=== PATIENT | female | born 1945 | race Caucasian/White ===

== ENCOUNTER 2020-09-29 12:10 | Emergency (ER) | payer MEDICARE, OTHER ==
[2020-09-29] MEDS ORDERED: Cleocin Phosphate IV 600 MG/4 ML ONE (12:44)
[2020-09-29] MEDS: Cleocin Phosphate IV 600 MG/4 ML IM STA (12:47)
--- NOTE | 2020-09-29 12:47 | ERPHSYRPT ---
- History of Present Illness Time Seen by Provider: 09/29/20 12:30 Source: patient Physician History: Patient is a 74-year-old female presents to our ED with cellulitis at the distal anterolateral aspect of her right leg. Patient self diagnosed with a blood clot. However patient has no history of blood clots. Patient has no calf pain or popliteal fossa pain. No chest pain or shortness of breath. The area that patient is concerned with is cellulitic, generating heat and tender mildly swo llen consistent with focal cellulitis. Patient denies fever. No trauma. No nausea or vomiting. Symptoms are mild to moderate in intensity. No specific worsening or improving factors. The area of involvement was first observed yesterday evening. The area is somewhat more tender today. Patient declined pain medication. Patient only experiences pain upon palpation to the area of involvement. Patient voices no other complaints or concerns at this time. She states her tetanus is up-to-date. Timing/Duration: yesterday Severity: mild Modifying Factors: Improves With: nothing Associated Symptoms: denies symptoms Allergies/Adverse Reactions: Penicillins Allergy (Intermediate, Verified 09/29/20 12:43) Sulfa (Sulfonamide Antibiotics) Allergy (Intermediate, Verified 09/29/20 12:43) Home Medications: Lisinopril 20 mg [Zestril 20 MG] 20 mg PO DAILY 09/29/20 [History] - Review of Systems Constitutional: No Symptoms, No Fever, No Chills Eyes: No Symptoms Ears, Nose, & Throat: No Symptoms Respiratory: No Symptoms, No Cough, No Dyspnea Cardiac: No Symptoms, No Chest Pain, No Edema, No Syncope Abdominal/Gastrointestinal: No Symptoms, No Abdominal Pain, No Nausea, No Vomiting, No Diarrhea Genitourinary Symptoms: No Symptoms, No Dysuria Musculoskeletal: No Symptoms, No Back Pain, No Neck Pain Skin: No Symptoms, No Rash Neurological: No Symptoms, No Dizziness, No Focal Weakness, No Sensory Changes Psychological: No Symptoms Endocrine: No Symptoms Hematologic/Lymphatic: No Symptoms Immunological/Allergic: No Symptoms All Other Systems: Reviewed and Negative - Nursing Vital Signs Nursing Vital Signs: Initial Vital Signs Temperature 98 F 09/29/20 12:27 Pulse Rate 56 L 09/29/20 12:27 Respiratory Rate 20 09/29/20 12:27 Blood Pressure 148/68 09/29/20 12:27 O2 Sat by Pulse Oximetry 96 09/29/20 12:27 Pain Scale Pain Intensity 7 - Physical Exam General Appearance: no apparent distress, alert Eye Exam: PERRL/EOMI, eyes nml inspection Ears, Nose, Throat Exam: normal ENT inspection, TMs normal, pharynx normal, moist mucous membranes Neck Exam: normal inspection, non-tender, supple, full range of motion Respiratory Exam: normal breath sounds, lungs clear, No respiratory distress Cardiovascular Exam: regular rate/rhythm, normal heart sounds, normal peripheral pulses Gastrointestinal/Abdomen Exam: soft, normal bowel sounds, No tenderness, No mass Back Exam: normal inspection, normal range of motion, No CVA tenderness, No vertebral tenderness Extremity Exam: normal inspection, normal range of motion, pelvis stable, other (5 x 7 cm area of cellulitis with indurated skin at the distal anterolateral aspect of her right leg. Negative Homans' sign. Extremities neurovascular intact distally. Cap refill less than 2 seconds. PT DP pulse palpable. The extremity is warm pink well perfused.) Neurologic Exam: alert, oriented x 3, cooperative, normal mood/affect, nml cerebellar function, nml station & gait, sensation nml, No motor deficits Skin Exam: normal color, warm, dry, No rash Lymphatic Exam: No adenopathy SpO2 Interpretation: normal SpO2: 98 O2 Delivery: Room Air - Course Nursing assessment & vital signs reviewed: Yes Ordered Tests: Medication Summary Discontinued Medications Generic Name Dose Route Start Last Admin Trade Name Lakia PRN Reason Stop Dose Admin Clindamycin Phosphate 600 mg 09/29/20 12:38 09/29/20 12:47 Cleocin Phosphate Iv 600 Mg/4 Ml IM 09/29/20 12:39 600 mg ONCE STA Administration Clindamycin Phosphate Confirm 09/29/20 12:44 Cleocin Phosphate Iv 600 Mg/4 Ml Administered 09/29/20 12:45 Dose 600 mg .ROUTE .STK-MED ONE - Progress Progress: improved Progress Note: 09/29/20 12:59 Patient reassessed. She continues to decline pain medication. Patient received an intramuscular dose of clindamycin. A written prescription for clindamycin was provided to patient. Patient was given a referral to Dr. Tuttle for a 48-hour follow-up. Plan of care discussed with patient. She agrees to follow-up as indicated. Patient voices no other complaints or concerns at this time. Will discharge home. Counseled pt/family regarding: diagnosis, need for follow-up - Departure Departure Disposition: Home Clinical Impression: Cellulitis Condition: Stable Critical Care Time: No Referrals: CAROLYN JONES MD [ACTIVE STAFF] - Additional Instructions: Discharge/Care Plan EMILY PRIETO was seen on 09/29/20 in the Emergency Room. The patient was counseled regarding Diagnosis,Lab results, Imaging studies, need for follow up and when to return to the Emergency Room. Prescriptions given: Discharge Note I have spoken with the patient and/or caregivers. I have explained the patient's condition, diagnosis and treatment plan based on the information available to me at this time. I have answered the patient's and/or caregiver's questions and addressed any concerns. The patient and/or caregivers have as good understanding of the patient's diagnosis, condition and treatment plan as can be expected at this point. The vital signs have been stable. The patient's condition is stable and appropriate for discharge from the emergency department. The patient will pursue further outpatient evaluation with the primary care physician or other designated or consulting physician as outlined in the discharge instructions. The patient and/or caregivers are agreeable to this plan of care and follow-up instructions have been explained in detail. The patient a nd/or caregivers have received these instruction. The patient/and or caregivers are aware that any significant change in condition or worsening of symptoms should prompt an immediate return to this or the closest emergency department or call 911. Prescriptions: Clindamycin HCl 150 mg [Cleocin 150 mg Capsule] 2 cap PO QID 7 Days #56 capsule
[2020-09-29 13:18] VITALS: BP 140/62; PULSE 60; O2SAT 97
== END 2020-09-29 13:16 | disposition home or self-care (01) ==
LOC: ED 12:10
DX: L03.115 Cellulitis of right lower limb (principal)
CPT/HCPCS: 96372; 99283

== ENCOUNTER 2020-10-03 20:02 | Emergency (ER) | payer MEDICARE, OTHER ==
[2020-10-03 20:32] VITALS: O2SAT 98
--- NOTE | 2020-10-03 20:44 | ERPHSYRPT ---
- History of Present Illness Time Seen by Provider: 10/03/20 20:04 Source: patient Exam Limitations: no limitations Patient Subjective Stated Complaint: pt states the cellulitis in her rt lower leg has gotten worse and more painful since Triage Nursing Assessment: pt alert and oriented, answers questions approp. pt back per wheelchair and transfers to stretcher with minimal assist. respirations nonlabored. edema 2+ noted to bilat lower extremites. some redness and mild warmth noted to rt lower leg. Physician History: Patient has right lower leg redness, tenderness. Treated for cellulitis for 5 days. Some improvement but increasing pain today. No falls no trauma. No other risk factors for DVT or pulmonary embolism. No chest pain, shortness of breath. Location: right lower leg Quality: sharp Radiation: none Severity: moderate Duration: 7 days Timing: gradual Modifying factors/associated signs and symptoms: on clindamycin Allergies/Adverse Reactions: Penicillins Allergy (Intermediate, Verified 10/03/20 20:43) Sulfa (Sulfonamide Antibiotics) Allergy (Intermediate, Verified 10/03/20 20:43) Home Medications: Lisinopril 20 mg [Zestril 20 MG] 20 mg PO DAILY 09/29/20 [History] Aspirin EC 81 mg [Ecotrin 81 mg] 81 mg PO DAILY 10/03/20 [History] Hx Tetanus, Diphtheria Vaccination/Date Given: Yes Hx Influenza Vaccination/Date Given: No Hx Pneumococcal Vaccination/Date Given: No Immunizations Up to Date: Yes Travel Risk - International Travel Have you traveled outside of the country in past 3 weeks: No - Coronavirus Screening Are you exhibiting any of the following symptoms?: No Close contact with a COVID-19 positive Pt in past 14-21 Days: Yes - Review of Systems Constitutional: No Fever, No Chills Eyes: No Symptoms Ears, Nose, & Throat: No Symptoms Respiratory: No Cough, No Dyspnea Cardiac: No Chest Pain, No Edema, No Syncope Abdominal/Gastrointestinal: No Abdominal Pain, No Nausea, No Vomiting, No Diarrhea Genitourinary Symptoms: No Dysuria Musculoskeletal: Other (Right lower leg redness tenderness.), No Back Pain, No Neck Pain Skin: No Rash Neurological: No Dizziness, No Focal Weakness, No Sensory Changes Psychological: No Symptoms Endocrine: No Symptoms All Other Systems: Reviewed and Negative - Past Medical History Pertinent Past Medical History: Yes Neurological History: No Pertinent History ENT History: No Pertinent History Cardiac History: Coronary Artery Disease, Other Respiratory History: No Pertinent History Endocrine Medical History: No Pertinent History Musculoskeletal History: No Pertinent History GI Medical History: No Pertinent History History: No Pertinent History Female Reproductive Disorders: No Pertinent History Other Medical History: Heart valve replacement 2004 and 2018 - Past Surgical History Past Surgical History: Yes Musculoskeletal: Joint Replacement Other Surgical History: arotic Heart valve replacements x2. lt hip replacement - Social History Smoking Status: Never smoker Exposure to second hand smoke: No Drug Use: none Patient Lives Alone: No - Nursing Vital Signs Nursing Vital Signs: Initial Vital Signs Temperature 98.1 F 10/03/20 20:16 Pulse Rate 59 L 10/03/20 20:16 Respiratory Rate 18 10/03/20 20:16 Blood Pressure 146/69 10/03/20 20:16 O2 Sat by Pulse Oximetry 98 10/03/20 20:16 Pain Scale Pain Intensity 7 - Physical Exam General Appearance: no apparent distress, alert Eye Exam: PERRL/EOMI, eyes nml inspection Ears, Nose, Throat Exam: normal ENT inspection, TMs normal, pharynx normal, moist mucous membranes Neck Exam: normal inspection, non-tender, supple, full range of motion Respiratory Exam: normal breath sounds, lungs clear, No respiratory distress Cardiovascular Exam: regular rate/rhythm, normal heart sounds, normal peripheral pulses Gastrointestinal/Abdomen Exam: soft, normal bowel sounds, No tenderness, No mass Back Exam: normal inspection, normal range of motion, No CVA tenderness, No vertebral tenderness Extremity Exam: normal inspection, normal range of motion, pelvis stable, tenderness (Right lower leg with redness, tenderness.), other Neurologic Exam: alert, oriented x 3, cooperative, normal mood/affect, nml cerebellar function, nml station & gait, sensation nml, No motor deficits Skin Exam: normal color, warm, dry, No rash Lymphatic Exam: No adenopathy SpO2 Interpretation: normal SpO2: 98 Comments: 10/03/20 20:43 No obvious deformity, sensation intact, 2+ capillary refill, 2 point tactile discrimination intact. 5 out of 5 strength. Full range of motion without pain. Compartments are soft, nontender. Overlying skin shows no tenting, bruising, ecchymosis. - Course Nursing assessment & vital signs reviewed: No Ordered Tests: Active Orders 24 hr Category Date Time Status IV Insertion STAT Care 10/03/20 20:22 Active Ultrasound Unilateral Extremities [VENOUS UNILAT/ Exams 10/03/20 Ordered LIMITED EXTREMIT] [US] Stat CBC W DIFF Stat Lab 10/03/20 20:40 Completed CMP Stat Lab 10/03/20 20:40 Completed D-DIMER QUANTITATIVE Stat Lab 10/03/20 20:40 Completed Lab/Rad Data: Laboratory Result Diagrams 10/03/20 20:40 10/03/20 20:40 Laboratory Results 10/03/20 10/03/20 10/03/20 Range/Units 20:40 20:40 20:40 WBC 7.2 (4.0-10.5) K/mm3 RBC 4.18 (4.1-5.4) M/mm3 Hgb 12.9 (12.0-16.0) gm/dl Hct 39.3 (35-47) % MCV 94.0 (78-100) fl MCH 30.9 (26-32) pg MCHC 32.8 (32-36) g/dl RDW 13.0 (11.5-14.0) % Plt Count 199 (150-450) K/mm3 MPV 11.4 H (7.5-11.0) fl Gran % 49.3 (36.0-66.0) % Eos # (Auto) 0.19 (0-0.5) Absolute Lymphs (auto) 2.51 (1.0-4.6) Absolute Monos (auto) 0.91 (0.0-1.3) Lymphocytes % 34.9 (24.0-44.0) % Monocytes % 12.6 H (0.0-12.0) % Eosinophils % 2.6 (0.00-5.0) % Basophils % 0.6 (0.0-0.4) % Absolute Granulocytes 3.55 (1.4-6.9) Basophils # 0.04 (0-0.4) D-Dimer 1652 H* (215-500) ng/mL Sodium 136 L (137-145) mmol/L Potassium 4.2 (3.5-5.1) mmol/L Chloride 105 (98-107) mmol/L Carbon Dioxide 28 (22-30) mmol/L Anion Gap 7.5 (5-15) MEQ/L BUN 23 H (7-17) mg/dL Creatinine 1.32 H (0.52-1.04) mg/dL Estimated GFR 41.6 ML/MIN Glucose 154 H (74-106) mg/dL Calcium 9.9 (8.4-10.2) mg/dL Total Bilirubin 0.40 (0.2-1.3) mg/dL AST 23 (14-36) U/L ALT 15 (0-35) U/L Alkaline Phosphatase 130 H (38-126) U/L Serum Total Protein 7.0 (6.3-8.2) g/dL Albumin 3.9 (3.5-5.0) g/dL - Progress Progress: improved Progress Note: 10/03/20 20:43 Differential diagnosis includes DVT, cellulitis, lower extremity edema. We will obtain a D-dimer, CBC, CMP. From my perspective it does not look terrible today. I do believe that it is improving with the clindamycin. Will wait on the results of dimer. If positive we will obtain an ultrasound. 10/03/20 22:21 Patient's D-dimer was positive. We did obtain an ultrasound. This demonstrated no DVT or other sinister pathology. Low suspicion for PE. Will extend patient's clindamycin. She is only on 7 days worth. Will extend it to 10 days. To follow-up with her PCP for reexam in 24 to 48 hours. Return here for new or changing symptoms. Plan of care was discussed with patient and all questions answered. The patient is agreeable to be discharged home and both verbal and printed discharge instructions were provided.The patient agreed to seek outpatient follow up as discussed. The patient was given strict instructions to return to the emergency department for worsening symptoms or any other emergent concerns. The patient verbalized understanding. - Departure Departure Disposition: Home Clinical Impression: Right calf pain Condition: Stable Critical Care Time: No Referrals: SHEN LOUIS [Primary Care Provider] - Instructions: Skin Rash (DC) Prescriptions: Clindamycin HCl 150 mg [Cleocin 150 mg Capsule] 2 cap PO QID 7 Days #56 capsule
[2020-10-03 20:45] LABS: Absolute Neutrophil Ct (ANC) 3.55 (1.4-6.9); BASOPHIL % 0.6 % (0.0-0.4); Basophil (Absolute #) 0.04 (0-0.4); Eosinophil % 2.6 % (0.00-5.0); Eosinophil (Absolute #) 0.19 (0-0.5); Hematocrit 39.3 % (35-47); Hemoglobin 12.9 gm/dl (12.0-16.0); Lymphocyte (Absolute #) 2.51 (1.0-4.6); Lymphocytes % 34.9 % (24.0-44.0); Mean Corpuscular Hemoglobin 30.9 pg (26-32); Mean Corpuscular Hgb Concent. 32.8 g/dl (32-36); Mean Platelet Volume 11.4 fl (7.5-11.0); Monocyte (Absolute #) 0.91 (0.0-1.3); Monocytes % 12.6 % (0.0-12.0); Neutrophil % 49.3 % (36.0-66.0); Platelet Count 199 K/mm3 (150-450); Red Blood Count 4.18 M/mm3 (4.1-5.4); White Blood Count 7.2 K/mm3 (4.0-10.5)
[2020-10-03 20:54] LABS: ALBUMIN 3.9 g/dL (3.5-5.0); ANION GAP 7.5 MEQ/L (5-15); BILIRUBIN,TOTAL 0.4 mg/dL (0.2-1.3); Calcium 9.9 mg/dL (8.4-10.2); Creatinine 1 1.32 mg/dL (0.52-1.04); EST GLOMERULAR FILTRATION RATE 41.6 ML/MIN; Potassium 4.2 mmol/L (3.5-5.1)
[2020-10-03 21:44] VITALS: BP 132/61; PULSE 64
--- NOTE | 2020-10-04 07:56 | XRAY ---
Indication: Cellulitis. DVT. Elevated d-dimer. Two-dimensional sonogram and color Doppler imaging of the major venous vessels of the right leg performed. Comparison: None No thrombus seen in the examined deep venous vessels of the right leg including greater saphenous vein. Veins demonstrate normal compressibility. Venous waveforms are normal with and without augmentation. Targeted soft tissue ultrasound of the anterolateral pérez is negative for focal solid/cystic mass or abnormal fluid collection. Impression: Right leg negative for DVT. Comparison: Preliminary report was given.
== END 2020-10-03 22:42 | disposition home or self-care (01) ==
LOC: ED 20:02
DX: M79.661 Pain in right lower leg (principal); L03.115 Cellulitis of right lower limb
CPT/HCPCS: 36000; 36415; 80053; 85025; 85379; 93971; 99284

== ENCOUNTER 2020-10-25 18:26 | Emergency (ER) | payer MEDICARE, OTHER ==
[2020-10-25 18:41] VITALS: BP 129/60; PULSE 58; O2SAT 96
--- NOTE | 2020-10-25 19:01 | ERPHSYRPT ---
- History of Present Illness Time Seen by Provider: 10/25/20 19:00 Exam Limitations: no limitations Patient Subjective Stated Complaint: Pt is doing antibiotic infusions for cellulitis and she has pain at the site of the IV and was told to come and have the IV removed Triage Nursing Assessment: Pt brought to the ER by her , axel allen, rates pain in hand as 8/10, denies any other issues Physician History: The patient is a [id number] female who presents with a chief complaint of burning to a peripheral IV site located on the dorsal aspect of her left hand. Onset was today. Of note, the peripheral IVs been established as of yesterday and she reportedly gets outpatient IV infusions of antibiotics for cellulitis of the right lower leg. She called the clinic and informed him of the burning sensation in her hand and was told to go to the emergency department for further evaluation. She had no fever, chills or any bleeding. By the time I evaluated the patient the patient's nurse had already discontinued the peripheral IV and then bandaged the site. Gradual for her next IV infusion tomorrow morning. She states the infusion center can reestablish IV access. Associated Symptoms: No nausea, No vomiting Allergies/Adverse Reactions: Sulfa (Sulfonamide Antibiotics) Allergy (Intermediate, Verified 10/25/20 18:40) Rash Home Medications: Lisinopril 20 mg [Zestril 20 MG] 20 mg PO DAILY 09/29/20 [History] Aspirin EC 81 mg [Ecotrin 81 mg] 81 mg PO DAILY 10/03/20 [History] Hx Tetanus, Diphtheria Vaccination/Date Given: Yes Hx Influenza Vaccination/Date Given: No Hx Pneumococcal Vaccination/Date Given: No Travel Risk - International Travel Have you traveled outside of the country in past 3 weeks: No - Coronavirus Screening Are you exhibiting any of the following symptoms?: No - Review of Systems Constitutional: No Symptoms Eyes: No Symptoms Ears, Nose, & Throat: No Symptoms Respiratory: No Symptoms Skin: Other (Burning sensation around IV site to the dorsal aspect of the L hand) All Other Systems: Reviewed and Negative - Past Medical History Pertinent Past Medical History: Yes Neurological History: No Pertinent History ENT History: No Pertinent History Cardiac History: Coronary Artery Disease, Other Respiratory History: No Pertinent History Endocrine Medical History: No Pertinent History Musculoskeletal History: No Pertinent History GI Medical History: No Pertinent History History: No Pertinent History Psycho-Social History: No Pertinent History Female Reproductive Disorders: No Pertinent History Other Medical History: Heart valve replacement 2004 and 2017. Cellulitis of BLE 2020 - Past Surgical History Past Surgical History: Yes Neuro Surgical History: No Pertinent History Cardiac: Valve Replacement Respiratory: No Pertinent History Gastrointestinal: No Pertinent History Genitourinary: No Pertinent History Musculoskeletal: Joint Replacement, Orthopedic Surgery Female Surgical History: Hysterectomy Other Surgical History: arotic Heart valve replacements x2. lt hip replacement. rotator cuff bilateral shoulders - Social History Smoking Status: Never smoker Exposure to second hand smoke: No Drug Use: none Patient Lives Alone: No - Female History Hx Now: No - Nursing Vital Signs Nursing Vital Signs: Initial Vital Signs Temperature 97.8 F 10/25/20 18:32 Pulse Rate 58 L 10/25/20 18:32 Blood Pressure 129/60 10/25/20 18:32 O2 Sat by Pulse Oximetry 96 10/25/20 18:32 Pain Scale Pain Intensity 8 - Physical Exam General Appearance: no apparent distress Eye Exam: No scleral icterus Neck Exam: normal inspection Respiratory Exam: normal breath sounds Cardiovascular Exam: regular rate/rhythm, capillary refill <2 sec, other (Left radial pulse 2+), No murmur, No friction rub Neurologic Exam: alert, oriented x 3, normal mood/affect Skin Exam: normal color, warm, dry, other (There was a small punctate site noted to the dorsal aspect of the left hand consistent to IV site access. No evdience of surrounding cellulitis to the L hand.), No rash SpO2: 96 - Departure Departure Disposition: Home Clinical Impression: Displacement of peripheral intravenous catheter Condition: Stable Critical Care Time: No Referrals: SHEN LOUIS [Primary Care Provider] - Instructions: Wound Care (DC) Additional Instructions: Please follow-up as schedule with the infusion center as scheduled tomorrow.
== END 2020-10-25 19:08 | disposition home or self-care (01) ==
LOC: ED 18:26
DX: T82.524A Displacement of infusion catheter, initial encounter (principal); I25.10 Atherosclerotic heart disease of native coronary artery without angina pectoris; Z79.899 Other long term (current) drug therapy
CPT/HCPCS: 99283; J3370

== ENCOUNTER 2023-08-04 09:39 | Emergency (ER) | payer MEDICARE, OTHER ==
[2023-08-04] MEDS ORDERED: TYLENOL EXTRA STRENGTH 500 MG PO PRN (09:57)
[2023-08-04] MEDS ORDERED: TYLENOL EXTRA STRENGTH 500 MG ONE (09:57)
[2023-08-04] MEDS ORDERED: TYLENOL EXTRA STRENGTH 500 MG PO ONE (09:59)
--- NOTE | 2023-08-04 10:38 | XRAY ---
Indication: Pain following fall one week ago. Comparison: None Portable chest demonstrates lingula subsegmental atelectasis/scarring. No focal infiltrate, consolidation, large effusion, or pneumothorax. Heart enlarged with cardiac valve replacement. Bony thorax intact with osteopenia, mild degenerative changes, and old left clavicle fracture. Impression: Nonacute chest with chronic features.
--- NOTE | 2023-08-04 10:40 | XRAY ---
Indication: Pain following fall one week ago. Impression: None 2 view right ribs demonstrates nondisplaced anterior lateral 5/6 rib fractures without pneumothorax/hemothorax. Elsewhere osteopenia, mild degenerative changes throughout spine, and cardiac valve replacement.
[2023-08-04 10:44] VITALS: BP 152/71
--- NOTE | 2023-08-04 11:01 | ERPHSYRPT ---
- History of Present Illness Time Seen by Provider: 08/04/23 10:55 Source: patient Exam Limitations: no limitations Patient Subjective Stated Complaint: Pt states "I was at a resteraunt last and the wheel fell off my walker and I hit my ribs on my lower right area. I have been lifting animal feed this week and think I have done more damage." Triage Nursing Assessment: Pt presnted alert and oriented X 3, skin pwd. PT ambulates with the assistance of a walker. Pt grunts and holds her right lower ribs when she moves, no crepitus or bruising noted. Physician History: 77-year-old female with history of hypertension, issues with balance due to broken right hip using walker for ambulation presented in the ER with chief complaint of right sided chest wall pain after her walker wheel broke and she fell on the walker handle. She was able to get up and doing better until couple days ago when she picked up heavy bags of corn and pain got worse. It is more on the right mid to lower lateral chest wall, more with movements, bending over, moving in either right or left and also with deep breathing. Moderate to severe sharp. No significant pain with resting. No cough or difficulty breathing reported. Patient has tenderness right mid to lower lateral chest wall with no crepitus. No flail segment. Lungs bilateral clear to auscultation. Does have aortic murmur. I have given her Tylenol for symptomatic relief, feeling better on reevaluation. I have obtained x-rays chest and rib series which showed nondisplaced right fifth and sixth lateral rib fracture. No pneumothorax or hemothorax. I have discussed the results of work-up with patient and family, we will give her pain medications and lidocaine patches to go home and outpatient follow-up recommended. Discussed course of healing process of rib fractures and she agrees with it. Discussed signs symptoms of worsening needing return to ER which she seems understanding. Allergies/Adverse Reactions: Sulfa (Sulfonamide Antibiotics) Allergy (Intermediate, Verified 10/25/20 18:40) Rash Home Medications: Lisinopril 20 mg [Zestril 20 MG] 20 mg PO DAILY 09/29/20 [History] Aspirin EC 81 mg [Ecotrin 81 mg] 81 mg PO DAILY 10/03/20 [History] Hx Tetanus, Diphtheria Vaccination/Date Given: Yes Hx Influenza Vaccination/Date Given: No Hx Pneumococcal Vaccination/Date Given: No Immunizations Up to Date: Yes Travel Risk - International Travel Have you traveled outside of the country in past 3 weeks: No - Coronavirus Screening Are you exhibiting any of the following symptoms?: No Close contact with a COVID-19 positive Pt in past 14-21 Days: No - Vaccine Status Have you recieved a Covid-19 vaccination: No - Review of Systems Constitutional: No Symptoms Ears, Nose, & Throat: No Symptoms Respiratory: No Symptoms Cardiac: Chest Pain Abdominal/Gastrointestinal: No Symptoms Genitourinary Symptoms: No Symptoms Musculoskeletal: Injury Skin: No Symptoms Psychological: No Symptoms Endocrine: No Symptoms Hematologic/Lymphatic: No Symptoms - Past Medical History Pertinent Past Medical History: Yes Neurological History: No Pertinent History ENT History: No Pertinent History Cardiac History: No Pertinent History Respiratory History: No Pertinent History Endocrine Medical History: No Pertinent History Musculoskeletal History: Osteoarthritis GI Medical History: No Pertinent History History: No Pertinent History Psycho-Social History: No Pertinent History Female Reproductive Disorders: No Pertinent History Other Medical History: AORTIC VALVE REPLACEMENT X2. - Past Surgical History Past Surgical History: Yes Neuro Surgical History: No Pertinent History Cardiac: Valve Replacement Respiratory: No Pertinent History Gastrointestinal: No Pertinent History Genitourinary: No Pertinent History Musculoskeletal: Joint Replacement, Orthopedic Surgery Female Surgical History: Hysterectomy Other Surgical History: arotic Heart valve replacements x2. lt hip replacement. rotator cuff bilateral shoulders - Social History Smoking Status: Never smoker Exposure to second hand smoke: No Drug Use: none Patient Lives Alone: No - Nursing Vital Signs Nursing Vital Signs: Initial Vital Signs Temperature 96.2 F 08/04/23 09:47 Pulse Rate 65 08/04/23 09:47 Respiratory Rate 22 08/04/23 09:47 Blood Pressure 173/76 08/04/23 09:47 O2 Sat by Pulse Oximetry 96 08/04/23 09:47 Pain Scale Pain Intensity 4 - Physical Exam General Appearance: no apparent distress, alert Eye Exam: PERRL/EOMI Ears, Nose, Throat Exam: normal ENT inspection Neck Exam: normal inspection, full range of motion Respiratory Exam: normal breath sounds, chest tenderness (Right mid lateral chest wall with no crepitus. No flail segment.), lungs clear Cardiovascular Exam: regular rate/rhythm, normal heart sounds Gastrointestinal/Abdomen Exam: soft, normal bowel sounds, No tenderness Back Exam: normal inspection Neurologic Exam: alert, oriented x 3, cooperative Skin Exam: normal color SpO2 Interpretation: normal SpO2: 97 O2 Delivery: Room Air Ordered Tests: Active Orders 24 hr Category Date Time Status CHEST 1 VIEW (PORTABLE) Routine Exams 08/04/23 10:02 Completed RIBS UNILATERAL Stat Exams 08/04/23 09:56 Completed Medication Summary Generic Name Dose Route Start Last Admin Trade Name Freq PRN Reason Stop Dose Admin Acetaminophen 1,000 mg 08/04/23 09:57 Acetaminophen 500 Mg Tablet PO 09/03/23 09:56 Q4H PRN PRN HEADACHE Discontinued Medications Generic Name Dose Route Start Last Admin Trade Name Freq PRN Reason Stop Dose Admin Acetaminophen 1,000 mg 08/04/23 09:59 08/04/23 10:00 Acetaminophen 500 Mg Tablet PO 08/04/23 10:00 1,000 mg STAT ONE Administration - Progress Progress: improved, pain not gone completely, re-examined Progress Note: 08/04/23 10:59 77-year-old female with history of hypertension, issues with balance due to broken right hip using walker for ambulation presented in the ER with chief complaint of right sided chest wall pain after her walker wheel broke and she fell on the walker handle. She was able to get up and doing better until couple days ago when she picked up heavy bags of corn and pain got worse. It is more on the right mid to lower lateral chest wall, more with movements, bending over, moving in either right or left and also with deep breathing. Moderate to severe sharp. No significant pain with resting. No cough or difficulty breathing reported. Patient has tenderness right mid to lower lateral chest wall with no crepitus. No flail segment. Lungs bilateral clear to auscultation. Does have aortic murmur. I have given her Tylenol for symptomatic relief, feeling better on reevaluation. I have obtained x-rays chest and rib series which showed nondisplaced right fifth and sixth lateral rib fracture. No pneumothorax or hemothorax. Noncardiac chest pain. Do not think needs any work-up other than this. I have discussed the results of work-up with patient and family, we will give her pain medications and lidocaine patches to go home and outpatient follow-up recommended. Discussed course of healing process of rib fractures and she agrees with it. Discussed signs symptoms of worsening needing return to ER which she seems understanding. Counseled pt/family regarding: diagnosis, need for follow-up, rad results Medical Desision Making - Diagnostic Testing Diagnostic test were ordered, analyzed, and reviewed by me: Yes Radiological Interpretation: Reviewed by me - Risk of complications The pt has a mod risk of morbidity or mortality based on: Need for prescription drug management - Departure Departure Disposition: Home Clinical Impression: Ribs, multiple fractures Qualifiers: Encounter type: initial encounter Fracture type: closed Laterality: right Qualified Code(s): S22.41XA - Multiple fractures of ribs, right side, initial encounter for closed fracture Condition: Stable Critical Care Time: No Referrals: SHEN LOUIS [Primary Care Provider] - Follow up with PCP 1 day Instructions: Rib Fracture (DC) Additional Instructions: Intermittent ice application. Take pain medications as needed. Use walker for ambulation all the time. Do deep breathing exercises. Follow-up with primary care for reevaluation. Return to ER for any worsening pain or if having difficulty breathing etc. Prescriptions: Tramadol HCl 50 mg [Ultram 50 mg] 50 mg PO Q6HPRN PRN 3 Days #12 tablet PRN Reason: Pain Lidocaine HCl 5% Patch [Lidoderm Patch 5%] 1 patch TP DAILY 12 Days #12 patch
[2023-08-04 11:15] VITALS: PULSE 59; RESP 20; TEMP 97.6; O2SAT 99
== END 2023-08-04 11:26 | disposition home or self-care (01) ==
LOC: ED 09:39
DX: S22.41XA Multiple fractures of ribs, right side, initial encounter for closed fracture (principal); W22.8XXA Striking against or struck by other objects, initial encounter; Z79.891 Long term (current) use of opiate analgesic; Z79.899 Other long term (current) drug therapy; Z28.310 Unvaccinated for COVID-19
CPT/HCPCS: 71045; 71100; 99283; A9270-GY

== ENCOUNTER 2024-05-09 12:37 | Day surgery (SDC) | payer MEDICARE, OTHER ==
[2024-05-09] MEDS ORDERED: Depo-Medrol 40 MG/ML IM ONE (12:38)
[2024-05-09] MEDS ORDERED: BUPIVACAINE 0.5% VIAL IJ ONE (12:38)
[2024-05-09] MEDS ORDERED: Lactated Ringers 1,000 ML IV ONE (13:50)
[2024-05-09] MEDS ORDERED: DIPRIVAN 200 MG/20 ML IV ONE (14:10)
--- NOTE | 2024-05-09 15:00 | XRAY ---
Indication: Right hip injection. Intraoperative fluoroscopy provided for 29 seconds. 2 digital spot image submitted for interpretation demonstrates needle tip projecting lateral to right femur neck. Small amount of contrast injected for needle tip placement. Correlate with intraoperative findings/report.
--- NOTE | 2024-05-09 16:52 | XRAY ---
29 seconds of fluoroscopy was used in surgery for a right intra-articular hip injection.
== END 2024-05-09 14:50 | disposition home or self-care (01) ==
LOC: SDC-PAIN 12:37
PROVIDERS: ATTEND Psychiatry & Neurology Pain Medicine
DX: M16.11 Unilateral primary osteoarthritis, right hip (principal)
CPT/HCPCS: 20610; 73501; 77002; J2704; Q9966

== ENCOUNTER 2024-06-13 13:42 | Day surgery (SDC) | payer MEDICARE, OTHER ==
[2024-06-13] MEDS ORDERED: BUPIVACAINE 0.5% VIAL IJ ONE (13:43)
[2024-06-13] MEDS ORDERED: LIDOCAINE HCL 1% 50 MG/5 ML VL PF IJ ONE (13:43)
[2024-06-13] MEDS ORDERED: Depo-Medrol 40 MG/ML IM ONE (13:43)
[2024-06-13] MEDS ORDERED: Lactated Ringers 1,000 ML IV ONE (15:02)
[2024-06-13] MEDS ORDERED: DIPRIVAN 200 MG/20 ML IV ONE (15:25)
[2024-06-13] MEDS ORDERED: MORPHINE SULFATE 2 MG INJ ONE ×2 (15:53→16:34)
--- NOTE | 2024-06-13 17:12 | XRAY ---
Indication: Right hip and greater trochanter bursa injection. Intraoperative fluoroscopy provided for 44 seconds. 2 digital spot images submitted for interpretation demonstrates needle tips projecting lateral to right femur neck and greater trochanter. Small amount of contrast injected for both needle tip placement. Correlate with intraoperative findings/report.
--- NOTE | 2024-06-13 17:14 | XRAY ---
44 seconds of fluoroscopy was used in surgery for a right hip an intra-articular and greater trochanteric bursa injections.
== END 2024-06-13 16:52 | disposition home or self-care (01) ==
LOC: SDC-PAIN 13:42
PROVIDERS: ATTEND Psychiatry & Neurology Pain Medicine
DX: M16.11 Unilateral primary osteoarthritis, right hip (principal); M70.61 Trochanteric bursitis, right hip
CPT/HCPCS: 20610; 73502; 77002; J2001; J2270; J2704; Q9966

== ENCOUNTER 2025-02-24 18:10 | Emergency (ER) | payer MEDICARE, OTHER ==
[2025-02-24 18:18] VITALS: BP 172/70; PULSE 61; RESP 23; TEMP 97.7; O2SAT 97
--- NOTE | 2025-02-24 18:37 | ERPHSYRPT ---
- History of Present Illness Source: patient Exam Limitations: no limitations Patient Subjective Stated Complaint: Pt reports getting bit by a large brown spider on Tuesday on her back Triage Nursing Assessment: Pt brought self to the ER, hypertensive, denies pain, reports that it itches, pulses normal, skin n/w/d, no difficulty breathing, denies chest pain, no N&V Physician History: Patient says she saw spider and she is sure that it was the one that bit her. She said it was brown. She has an area on her back. There is a about a inch and a half diameter solid red erythematous area with some central clearing which is about a centimeter in diameter. Is more scab than anything. There is not massive ulceration or skin breakdown. It appears to be scabbing over.She has no fever chills or toxic symptoms. She says that the lesion does itch but pain is pretty well-controlled. Quality: burning, itchy Severity: mild Allergies/Adverse Reactions: Sulfa (Sulfonamide Antibiotics) Allergy (Intermediate, Verified 02/24/25 18:18) Rash Penicillins Allergy (Verified 02/24/25 18:19) Home Medications: No Reportable Medications [No Reported Medications] 02/24/25 [History] Hx Tetanus, Diphtheria Vaccination/Date Given: Yes Hx Influenza Vaccination/Date Given: No Hx Pneumococcal Vaccination/Date Given: No Travel Risk - International Travel Have you traveled outside of the country in past 3 weeks: No - Emerging Infectious Disease Are you exhibiting symptoms associated with any current EIDs: No - Review of Systems Constitutional: No Symptoms Eyes: No Symptoms Musculoskeletal: No Symptoms All Other Systems: Reviewed and Negative - Past Medical History Pertinent Past Medical History: Yes Neurological History: No Pertinent History ENT History: No Pertinent History Cardiac History: No Pertinent History Respiratory History: No Pertinent History Endocrine Medical History: No Pertinent History Musculoskeletal History: Osteoarthritis GI Medical History: No Pertinent History History: No Pertinent History Psycho-Social History: No Pertinent History Female Reproductive Disorders: No Pertinent History Other Medical History: L ANKLE FRACTURE, AORTIC VALVE REPLACEMENT. - Past Surgical History Past Surgical History: Yes Neuro Surgical History: No Pertinent History Cardiac: Valve Replacement Respiratory: No Pertinent History Gastrointestinal: No Pertinent History Genitourinary: No Pertinent History Musculoskeletal: Joint Replacement, Orthopedic Surgery Female Surgical History: Hysterectomy Other Surgical History: arotic Heart valve replacements x2. lt hip replacement. rotator cuff bilateral shoulders - Social History Smoking Status: Never smoker Exposure to second hand smoke: No Drug Use: none - Social Determinants of Health Will the patient participate in the screening: Yes Do you worry about a steady place to live?: No Do you have any problems with any of the following?: No known problems In the past 12 months,have you had to go without utilities?: No Transportation Issues: No Has anyone in your support network made you feel unsafe?: No Have you or anyone in your house had to go w/o enough food: No - Nursing Vital Signs Nursing Vital Signs: Initial Vital Signs Temperature 97.7 F 02/24/25 18:15 Pulse Rate 61 02/24/25 18:15 Respiratory Rate 23 02/24/25 18:15 Blood Pressure 172/70 02/24/25 18:15 O2 Sat by Pulse Oximetry 97 02/24/25 18:15 Pain Scale Pain Intensity 0 - Physical Exam General Appearance: no apparent distress Eye Exam: PERRL/EOMI Ears, Nose, Throat Exam: normal ENT inspection Neck Exam: normal inspection Respiratory Exam: normal breath sounds, lungs clear, No chest tenderness Cardiovascular Exam: regular rate/rhythm, normal heart sounds Skin Exam: other (Area on the back described in the HPI.) Lymphatic Exam: No adenopathy SpO2: 97 - Course Nursing assessment & vital signs reviewed: Yes - Progress Progress: unchanged Progress Note: Patient was stable throughout stay. I do not believe that any skin breakdown is going to occur. I definitely do not think that there is no to be any further changes in this. I told her to watch for it and if the central area ulcerates out and gets bigger and becomes bigger than a quarter she is to return. She says she can get somebody to help monitor. The surrounding erythema looks more like toxin than infection. It is very well-circumscribed and a definite border. I am disc and have her use cold compresses on that.I do not think antibiotics are needed at this time. 02/24/25 18:35 - Departure Departure Disposition: Home Clinical Impression: Venomous spider bite Condition: Stable Critical Care Time: No Referrals: SHEN LOUIS [Primary Care Provider, [facility]] - Follow up/PCP as directed Instructions: Spider bites
== END 2025-02-24 18:44 | disposition home or self-care (01) ==
LOC: ED 18:10
DX: T63.301A Toxic effect of unspecified spider venom, accidental (unintentional), initial encounter (principal); L53.0 Toxic erythema
CPT/HCPCS: 99281